=== PATIENT | male | born 2000 | race Two or more races ===

== ENCOUNTER 2024-05-11 09:25 | Emergency (ER) | payer SELFPAY ==
[~2024-05-11] VITALS: Ht 175.3 cm; Wt 86.2 kg
[2024-05-11 09:38] VITALS: TEMP 98.4
[2024-05-11] MEDS ORDERED: BACI/NEOM/POLY B OINT PKT 1 UDPKT PACKET TP ONE (10:30)
[2024-05-11] MEDS ORDERED: BACI/NEOM/POLY B OINT PKT 1 UDPKT PACKET ONE (10:40)
[2024-05-11] MEDS ORDERED: TDAP [DIPH/PERTUSSIS/TET] 0.5 ML VIAL IM ONE (10:40)
[2024-05-11] MEDS: TDAP [DIPH/PERTUSSIS/TET] 0.5 ML VIAL IM ONE (10:47)
[2024-05-11] MEDS ORDERED: IBUPROFEN 400 MG TABLET ONE (11:11)
[2024-05-11] MEDS ORDERED: CEPH-570 PO (11:12)
[2024-05-11] MEDS ORDERED: IBUP-1955 PO (11:12)
[2024-05-11] MEDS ORDERED: LIDOCAINE 1% INJ 50 ML MDV IJ ONE ×2 (11:42→13:30)
[2024-05-11] MEDS: IBUPROFEN 400 MG TABLET PO ONE (11:54)
[2024-05-11 13:27] VITALS: BP 146/70; O2SAT 99
== END 2024-05-11 13:06 | disposition home or self-care (01) ==
LOC: ER 09:29
DX: S61.210A Laceration without foreign body of right index finger without damage to nail, initial encounter (principal); W25.XXXA Contact with sharp glass, initial encounter; Y93.89 Activity, other specified; Y92.89 Other specified places as the place of occurrence of the external cause; Y99.8 Other external cause status
CPT/HCPCS: 12002; 90471; 90715; 99283; A6403; J3490

== ENCOUNTER 2024-05-18 16:47 | Emergency (ER) | payer MEDICAID ==
[~2024-05-18] VITALS: Ht 175.3 cm; Wt 86.2 kg
[~2024-05-18 16:47] MED LIST: CEPH-570 PO; IBUP-1955 PO
[2024-05-18 16:55] VITALS: BP 138/74; TEMP 98.3
[2024-05-18 17:43] VITALS: O2SAT 99
== END 2024-05-18 17:43 | disposition home or self-care (01) ==
LOC: ER 16:47
DX: S61.210D Laceration without foreign body of right index finger without damage to nail, subsequent encounter (principal); Z48.02 Encounter for removal of sutures; Z60.2 Problems related to living alone; X58.XXXD Exposure to other specified factors, subsequent encounter

== ENCOUNTER 2024-09-17 10:33 | Emergency (ER) | payer MEDICAID ==
[~2024-09-17] VITALS: Ht 175.3 cm; Wt 86.2 kg
[2024-09-17 10:46] VITALS: BP 132/71; TEMP 98
[2024-09-17] MEDS ORDERED: IBUP-1490 PO (11:36)
[2024-09-17 11:50] VITALS: O2SAT 98
== END 2024-09-17 11:50 | disposition home or self-care (01) ==
LOC: ER 10:41
DX: M79.644 Pain in right finger(s) (principal); Z60.2 Problems related to living alone
CPT/HCPCS: 73130-TC